=== PATIENT | female | born 1950 | race Caucasian/White ===

== ENCOUNTER 2021-03-03 04:24 | Day surgery (SDC) | payer OTHER ==
[2021-02-26 14:47] VITALS: BMI 51.3
[2021-03-03 10:13] VITALS: TEMP 97.7
[2021-03-03 11:22] VITALS: BP 127/90; PULSE 85
== END 2021-03-03 11:22 | disposition home or self-care (01) ==
LOC: JASU-ENDO 04:24
PROVIDERS: ATTEND Internal Medicine Gastroenterology
PROC: 0DB78ZX Excision of Stomach, Pylorus, Via Natural or Artificial Opening Endoscopic, Diagnostic (ICD-10-PCS; principal; 2021-03-03 10:00)
DX: K29.50 Unspecified chronic gastritis without bleeding (principal); K31.89 Other diseases of stomach and duodenum; K44.9 Diaphragmatic hernia without obstruction or gangrene; K30 Functional dyspepsia
CPT/HCPCS: 88305-TC; 88342-TC

== ENCOUNTER 2021-03-26 05:21 | Day surgery (SDC) | payer OTHER ==
[2021-03-24 17:10] VITALS: BMI 47.1
[2021-03-26] MEDS ORDERED: KETAMINE HCL 200 MG/20 ML VIAL ONE (07:19)
== END 2021-03-26 08:29 | disposition home or self-care (01) ==
LOC: JASU-ENDO 05:21
PROVIDERS: ATTEND Internal Medicine Gastroenterology
DX: Z53.8 Procedure and treatment not carried out for other reasons (principal)

== ENCOUNTER 2021-05-14 04:53 | Day surgery (SDC) | payer OTHER ==
[2021-05-12 14:06] VITALS: BMI 50.4
[2021-05-14 09:52] VITALS: TEMP 98
[2021-05-14 10:40] VITALS: BP 123/67; PULSE 86
== END 2021-05-14 10:53 | disposition home or self-care (01) ==
LOC: JASU-ENDO 04:53
PROVIDERS: ATTEND Internal Medicine Gastroenterology
PROC: 0DJD8ZZ Inspection of Lower Intestinal Tract, Via Natural or Artificial Opening Endoscopic (ICD-10-PCS; principal; 2021-05-14 09:17)
DX: Z12.11 Encounter for screening for malignant neoplasm of colon (principal); K57.30 Diverticulosis of large intestine without perforation or abscess without bleeding; K64.8 Other hemorrhoids; K59.89 Other specified functional intestinal disorders; Z86.010 Personal history of colon polyps

== ENCOUNTER 2022-09-03 06:00 | Day surgery (SDC) | payer OTHER ==
[2022-08-31 14:48] VITALS: BMI 36.6
[2022-09-03] MEDS ORDERED: LACTATED RINGERS SOLUTION 1,000 ML IV SCH (08:30)
[2022-09-03 09:55] VITALS: RESP 20
[2022-09-03 12:08] VITALS: BP 120/77; PULSE 83; TEMP 97.8
== END 2022-09-03 12:10 | disposition home or self-care (01) ==
LOC: JASU-SURG 06:00
PROVIDERS: ATTEND Obstetrics & Gynecology
PROC: 0UDB7ZX Extraction of Endometrium, Via Natural or Artificial Opening, Diagnostic (ICD-10-PCS; principal; 2022-09-03 07:30)
PROC: 0UJD8ZZ Inspection of Uterus and Cervix, Via Natural or Artificial Opening Endoscopic (ICD-10-PCS; 2022-09-03 07:30)
DX: N85.00 Endometrial hyperplasia, unspecified (principal)
CPT/HCPCS: 88305-TC; 94760

== ENCOUNTER 2023-05-17 09:18 | Emergency (ER) | payer OTHER ==
[2023-05-17 09:31] VITALS: BMI 44.5
[2023-05-17 10:30] LABS: EPI CELLS >36 /uL (0-25.1); HYALINE CASTS 1 /uL (0-3.1); PH,URINE 5.5 (5.0-8.0); URINE APPEARANCE CLEAR; URINE BACTERIA 1129 /uL (0-1359); URINE BILIRUBIN NEGATIVE (NEGATIVE); URINE COLOR YELLOW; URINE GLUCOSE (UA) NEGATIVE (NEGATIVE); URINE KETONE NEGATIVE (NEGATIVE); URINE LEUK ESTERASE 2+ (NEGATIVE); URINE NITRITE NEGATIVE (NEGATIVE); URINE PROTEIN NEGATIVE (NEGATIVE); URINE RBC 21 /uL (0-23.9); URINE UROBILINOGEN 0.2 mg/dL (0.2-1.0); URINE WBC 73 /uL (0-25.8)
[2023-05-17 11:02] VITALS: BP 136/79; PULSE 93; RESP 18; TEMP 98.3
== END 2023-05-17 11:08 | disposition home or self-care (01) ==
LOC: JER 09:18
DX: M54.50 Low back pain, unspecified (principal); N39.0 Urinary tract infection, site not specified
CPT/HCPCS: 81003; 87086; 99283-25